=== PATIENT | female | born 1960 | race Caucasian/White ===

== ENCOUNTER 2022-03-17 06:14 | Inpatient (IN) | payer BC, OTHER ==
[~2022-03-17] VITALS: Ht 170.2 cm; Wt 112.3 kg
[~2022-03-17 06:14] MED LIST: LOSA25TA96 PO
[2022-03-17 07:11] LABS: BASOPHILS # (AUTO) 0.1 X10'3 (0-0.2); EOSINOPHILS # (AUTO) 0.1 X10'3 (0-0.9); EOSINOPHILS % (AUTO) 1.2 % (0-6); HEMATOCRIT 40.1 % (35.0-45.0); HEMOGLOBIN 13.5 g/dl (12.0-16.0); LYMPHOCYTES # (AUTO) 1.7 X10'3 (1.1-4.8); LYMPHOCYTES % (AUTO) 21.2 % (21-51); MEAN CORPUSCULAR HEMOGLOBIN 29.3 PG (27.0-31.0); MEAN CORPUSCULAR HGB CONC 33.6 g/dL (33.0-36.5); MEAN CORPUSCULAR VOLUME 87.4 FL (78-98); MEAN PLATELET VOLUME 8.2 FL (7.4-10.4); MONOCYTES # (AUTO) 0.6 X10'3 (0-0.9); NEUTROPHILS # (AUTO) 5.7 X10'3 (1.8-7.7); NEUTROPHILS % (AUTO) 69.6 % (42-75); PLATELET COUNT 240 X10'3 (140-440); RED BLOOD COUNT 4.59 X10'6 (4.20-5.60); RED CELL DISTRIBUTION WIDTH 13.5 % (11.5-14.5); WHITE BLOOD COUNT 8.1 X10'3 (4.5-11.0)
[2022-03-17 07:30] LABS: ALANINE AMINOTRANSFERASE 22 U/L (12-78); ALBUMIN 3.4 G/DL (3.4-5.0); ALBUMIN/GLOBULIN RATIO 0.9 (1.1-1.5); ALKALINE PHOSPHATASE 93 IU/L (46-116); ANION GAP 7 (8-16); ASPARTATE AMINO TRANSFERASE 15 U/L (10-37); BILIRUBIN,TOTAL 0.4 MG/DL (0.1-1.0); BLOOD UREA NITROGEN 21 MG/DL (7-18); BUN/CREATININE RATIO 29.6 (6.6-38.0); CALCIUM 8.7 MG/DL (8.5-10.1); CHLORIDE 106 MMOL/L (99-107); CREATININE 0.71 MG/DL (0.40-0.90); GLUCOSE 103 MG/DL (70-104); POTASSIUM 3.9 MMOL/L (3.5-5.1); SODIUM 140 MMOL/L (135-145); TOTAL PROTEIN 7.2 G/DL (6.4-8.2); eGFR 83 ML/MIN
[2022-03-17] MEDS ORDERED: aspirin 325mg tablet PO ONE (10:00)
[2022-03-17] MEDS ORDERED: MELO-102 PO (10:10)
[2022-03-17] MEDS ORDERED: OMEP40CA21 PO (10:10)
[2022-03-17] MEDS ORDERED: TRAM50TA2 PO (10:10)
[2022-03-17] MEDS ORDERED: RED600CA2 (10:10)
[2022-03-17] MEDS ORDERED: ZINC30CA PO (10:10)
[2022-03-17] MEDS ORDERED: LISI20TA28 PO (10:10)
[2022-03-17] MEDS ORDERED: CALC1TAB41 (10:10)
[2022-03-17] MEDS ORDERED: magnesium hydroxide 30ml (MOM) UD suspension PO PRN (10:40)
[2022-03-17] MEDS ORDERED: magnesium 4gm in 100ml NS 100 ML IV PRN (10:40)
[2022-03-17] MEDS ORDERED: nitroGLYCERIN 0.4mg SUBLingual tab SL PRN (10:40)
[2022-03-17] MEDS ORDERED: PERFLUTREN PROTEIN-A MICROSPHR (Optison) 0.22 MG/ML 3ML VIAL IV ONE (10:40)
[2022-03-17] MEDS ORDERED: acetaminophen 325mg tablet PO PRN ×2 (10:40)
[2022-03-17] MEDS ORDERED: regadenoson 0.4mg/5ml syringe IV PRN (10:40)
[2022-03-17] MEDS ORDERED: potassium Cl 20 mEq SR tablet PO PRN ×2 (10:40)
[2022-03-17] MEDS ORDERED: potassium Cl 40MEQ/1/2NS 520ml 520 ML IV PRN (10:40)
[2022-03-17] MEDS ORDERED: aminophylline 500mg/20ml vial IV PRN (10:40)
[2022-03-17] MEDS ORDERED: metoprolol tartrate 1mg/ml inj IV PRN (10:40)
[2022-03-17] MEDS ORDERED: ondansetron/PF 4mg/2ml inj IV PRN (10:40)
[2022-03-17] MEDS ORDERED: ondansetron 4mg rapidly disintigrating tab PO PRN (10:40)
[2022-03-17] MEDS ORDERED: mag hydrox/Alum hydrox/simeth 30ml oral suspension PO PRN (10:40)
[2022-03-17] MEDS ORDERED: magnesium Cl slow-release 64mg tablet PO PRN (10:40)
[2022-03-17] MEDS ORDERED: morphine 2 MG/ML inj. syringe IV PRN ×2 (10:40)
[2022-03-17 10:45] LABS: CLARITY,URINE CLEAR (Clear); COLOR,URINE YELLOW (Yellow); GLUCOSE, URINE NEGATIVE (Neg); KETONES,URINE NEGATIVE (Neg); LEUKOCYTE ESTERASE ,URINE NEGATIVE (Neg); NITRITES, URINE NEGATIVE (Neg); OCCULT BLOOD,URINE TRACE-INTACT (Neg); PH,URINE 6.5 (4.8-8.0); PROTEIN,URINE NEGATIVE (Neg); UROBILINOGEN,URINE 0.2 E.U/dL (0.2-1.0)
[2022-03-17 10:48] LABS: UA COLLECTION TYPE CLN CATCH MIDSTREAM
[2022-03-17 11:03] LABS: BACTERIA,URINE NONE SEEN /HPF (Neg); MUCUS STRANDS NONE SEEN /LPF (Neg); RBC,URINE NONE SEEN /HPF (0-2); SQUAMOUS EPITHELIAL CELL,UR FEW /LPF (FEW); WBC,URINE 0-4 /HPF (0-4)
[2022-03-17 11:18] LABS: HEMOGLOBIN A1C 5.2 % (4.5-6.2)
[2022-03-17 11:23] LABS: CHOL/HDL RATIO 4.1 (0.00-4.99); CHOLESTEROL 224 MG/DL (0-200); HDL CHOLESTEROL 54 MG/DL (35-60); LDL CHOLESTEROL 145 MG/DL (50-100); TRIGLYCERIDES 122 MG/DL (20-135)
[2022-03-17 11:55] LABS: PHOSPHORUS 3.3 MG/DL (2.3-4.5)
--- NOTE | 2022-03-17 11:59 | NUR ---
STRESS TEST ORDERED, PT NEEDS CARDIOLOGY CONSULT TROP HAVE INCREASED, PAGED [employer] TO SEE IF SHOULD DO STRESS TEST, RYAN BARRERA AWARE WELL
[2022-03-17] MEDS ORDERED: MULT-1133 PO (12:46)
[2022-03-17] MEDS ORDERED: OMEP20CA16 PO (13:07)
[2022-03-17] MEDS ORDERED: CALC1TAB41 PO (13:07)
[2022-03-17] MEDS: heparin, porcine 5000 units/ml vial SQ SCH (16:08)
--- NOTE | 2022-03-17 16:35 | NUR ---
Changed onto a hospital bed.
[2022-03-17] MEDS: K and/or MAG REPLACEMENT MC SCH (19:28)
[2022-03-17] MEDS: docusate sod 100mg capsule PO SCH (19:44)
[2022-03-17] MEDS: traMADol 50MG tablet PO PRN (19:45)
[2022-03-17] MEDS ORDERED: temazepam 15mg capsule PO PRN (21:00)
[2022-03-18] MEDS: heparin, porcine 5000 units/ml vial SQ SCH ×2 (00:58→09:37)
[2022-03-18 04:20] LABS: BASOPHILS # (AUTO) 0.1 X10'3 (0-0.2); BASOPHILS % (AUTO) 1.1 % (0-1); EOSINOPHILS # (AUTO) 0.2 X10'3 (0-0.9); HEMATOCRIT 38.5 % (35.0-45.0); HEMOGLOBIN 13.1 g/dl (12.0-16.0); LYMPHOCYTES # (AUTO) 2.7 X10'3 (1.1-4.8); LYMPHOCYTES % (AUTO) 33.2 % (21-51); MEAN CORPUSCULAR HEMOGLOBIN 29.6 PG (27.0-31.0); MEAN CORPUSCULAR HGB CONC 34.1 g/dL (33.0-36.5); MEAN CORPUSCULAR VOLUME 86.7 FL (78-98); MEAN PLATELET VOLUME 8.2 FL (7.4-10.4); MONOCYTES # (AUTO) 0.7 X10'3 (0-0.9); MONOCYTES % (AUTO) 8.3 % (2-12); NEUTROPHILS # (AUTO) 4.5 X10'3 (1.8-7.7); NEUTROPHILS % (AUTO) 55.4 % (42-75); PLATELET COUNT 229 X10'3 (140-440); RED BLOOD COUNT 4.44 X10'6 (4.20-5.60); RED CELL DISTRIBUTION WIDTH 13.7 % (11.5-14.5); WHITE BLOOD COUNT 8.1 X10'3 (4.5-11.0)
[2022-03-18 04:39] LABS: ALANINE AMINOTRANSFERASE 19 U/L (12-78); ALBUMIN 3.2 G/DL (3.4-5.0); ALBUMIN/GLOBULIN RATIO 0.9 (1.1-1.5); ALKALINE PHOSPHATASE 82 IU/L (46-116); ANION GAP 8 (8-16); ASPARTATE AMINO TRANSFERASE 14 U/L (10-37); BILIRUBIN,TOTAL 0.5 MG/DL (0.1-1.0); BLOOD UREA NITROGEN 23 MG/DL (7-18); BUN/CREATININE RATIO 34.3 (6.6-38.0); CALCIUM 8.8 MG/DL (8.5-10.1); CHLORIDE 107 MMOL/L (99-107); CREATININE 0.67 MG/DL (0.40-0.90); GLUCOSE 97 MG/DL (70-104); MAGNESIUM 1.9 MG/DL (1.5-2.4); PHOSPHORUS 3.8 MG/DL (2.3-4.5); POTASSIUM 3.9 MMOL/L (3.5-5.1); SODIUM 142 MMOL/L (135-145); TOTAL CARBON DIOXIDE 27.4 MMOL/L (24-32); TOTAL PROTEIN 6.6 G/DL (6.4-8.2); eGFR 89 ML/MIN
--- NOTE | 2022-03-18 07:00 | NUR ---
This AM upon assessment, pt denies chest pain and is asymptomatic. VS WNL.
[2022-03-18] MEDS: docusate sod 100mg capsule PO SCH (07:30)
--- NOTE | 2022-03-18 07:51 | NUR ---
RN called PCU to give nurse report at [phone]. RN unavailable, will call CLINICAL ACADEMIC ALLERGIST shortly.
[2022-03-18] MEDS ORDERED: pantoprazole 40mg Tablet.DR PO SCH (08:00)
[2022-03-18] MEDS ORDERED: lisinopril 20mg tablet PO SCH (08:00)
--- NOTE | 2022-03-18 08:04 | NUR ---
[employer] SUPER[employer]OR gave report to HOLLY Flores. Pt is stable. VS WNL. All questions answered.
[2022-03-18] MEDS ORDERED: aspirin 81mg tab.chew PO SCH (08:30)
[2022-03-18] MEDS: traMADol 50MG tablet PO PRN (09:36)
[2022-03-18 09:45] VITALS: BP 123/55
[2022-03-18] MEDS ORDERED: ATOR20TA66 PO (10:28)
[2022-03-18] MEDS ORDERED: ASPI81TA53 PO (10:28)
[2022-03-18] MEDS: K and/or MAG REPLACEMENT MC SCH (11:01)
--- NOTE | 2022-03-18 11:38 | NUR ---
Pt and spouse received discharge education, re: follow up appointments, medication schedule, diet and angina printed education. All questions answered, IV removed, no complications, campus monitor removed.
== END 2022-03-18 12:02 | disposition home or self-care (01) | DRG 282 ==
LOC: ER 06:15 → ED HOLD 10:42 → PCU 3S 03-18 08:50
PROVIDERS: ADMIT Family Medicine; ATTEND Family Medicine
DX: R00.0 Tachycardia, unspecified (principal); I21.A1 Myocardial infarction type 2; I20.9 Angina pectoris, unspecified; E66.9 Obesity, unspecified; E78.5 Hyperlipidemia, unspecified; F41.9 Anxiety disorder, unspecified; M54.9 Dorsalgia, unspecified; Z20.822 Contact with and (suspected) exposure to COVID-19; I11.0 Hypertensive heart disease with heart failure; K21.9 Gastro-esophageal reflux disease without esophagitis; M19.90 Unspecified osteoarthritis, unspecified site; Z79.82 Long term (current) use of aspirin; Z82.49 Family history of ischemic heart disease and other diseases of the circulatory system; Z85.41 Personal history of malignant neoplasm of cervix uteri; Z90.710 Acquired absence of both cervix and uterus; Z68.38 Body mass index [BMI] 38.0-38.9, adult; Z79.899 Other long term (current) drug therapy
CPT/HCPCS: 36415; 71045; 80053; 80061; 81001; 83036; 83735; 83880; 84100; 84439; 84443; 84480; 84484; 85025; 87081; 87811; 93306; 99285; G0378; J1644